=== PATIENT | female | born 1935 | race Caucasian/White ===

== ENCOUNTER 2016-08-09 12:16 | Inpatient (IN) | payer MEDICARE, OTHER ==
[~2016-08-09] VITALS: Ht 165.1 cm; Wt 104.7 kg
[~2016-08-09 12:16] MED LIST: ASPIRIN 32325 MG/TA1 PO; CALCIUM 600/VIT1 CAP PO; CELEBREX 200MG200 MG PO; FERROUS SU325 MG/TAB PO; FISH OIL1000 MG PO; FOLIC ACID 40400 MCG PO; LUTEIN20 M1 PO; MULTI VITAMINS1 TAB PO; NATURE'S BLEND400 IU PO; NORCO 325 MG-7.1 TAB PO; OSTEO-BI-FLEX 21 TAB PO; TYLENOL 8 HR PO; ULTRAM 50MG TAB50 MG PO; VESICARE 5MG5 MG PO; VITAMINC1000TA; ZETIA 10MG TAB10 MG PO
[2016-08-30] VITALS (11 sets, daily range): BP systolic 105–147; BP diastolic 45–78; PULSE 74–106; TEMP 90.8–98.6
[2016-08-31] VITALS (7 sets, daily range): BP systolic 105–157; BP diastolic 39–79; PULSE 88–102; TEMP 97.8–98.6
[2016-08-31] MEDS ORDERED: ASPIRIN 32325 MG/TA1 PO (06:20)
[2016-08-31] MEDS ORDERED: NORCO 325 MG-7.1 TAB PO (06:20)
[2016-08-31] MEDS ORDERED: CELEBREX 200MG200 MG PO (06:20)
[2016-08-31] MEDS ORDERED: ULTRAM 50MG TAB50 MG PO (06:21)
[2016-08-31 07:22] LABS: INR 1.1 (0.8-3.0); PROTHROMBIN TIME 12.5 SECONDS (9.7-12.8)
[2016-09-01 00:54] VITALS: BP 144/63; PULSE 88; TEMP 98.5
[2016-09-01 05:31] VITALS: BP 154/68; PULSE 92; TEMP 98.7
[2016-09-01 06:56] LABS: INR 1.2 (0.8-3.0); PROTHROMBIN TIME 13.1 SECONDS (9.7-12.8)
[2016-09-01 07:31] VITALS: BP 137/50; PULSE 94; TEMP 97.9
[2016-09-01 11:32] VITALS: BP 146/62; PULSE 91; TEMP 98.2
== END 2016-09-01 14:15 | disposition home or self-care (01) | DRG 468 ==
LOC: JCC 08-30 08:17
PROVIDERS: Orthopaedic Surgery
PROC: 0SP909Z Removal of Liner from Right Hip Joint, Open Approach (ICD-10-PCS; 2016-08-30)
PROC: 0SUA09Z Supplement Right Hip Joint, Acetabular Surface with Liner, Open Approach (ICD-10-PCS; 2016-08-30)
PROC: 0SP90JZ Removal of Synthetic Substitute from Right Hip Joint, Open Approach (ICD-10-PCS; 2016-08-30)
PROC: 0SR90JZ Replacement of Right Hip Joint with Synthetic Substitute, Open Approach (ICD-10-PCS; principal; 2016-08-30 14:00)
DX: T84.89XA Other specified complication of internal orthopedic prosthetic devices, implants and grafts, initial encounter (principal); M06.9 Rheumatoid arthritis, unspecified; Z85.828 Personal history of other malignant neoplasm of skin; Z96.641 Presence of right artificial hip joint
CPT/HCPCS: A4315; A9284; C1713; C1776; J0690; J1885; J2250; J2270; J2704; J7120

== ENCOUNTER → 2016-08-16 | Outpatient (CLI) | payer MEDICARE, OTHER | LOC: COL.LAB 11:23 | DX: Z01.812 Encounter for preprocedural laboratory examination (principal) ==